=== PATIENT | female | born 1935 | race Caucasian/White ===

== ENCOUNTER 2018-12-11 19:50 | Inpatient (IN) | payer MEDICARE, MEDICAID ==
[~2018-12-11] VITALS: Ht 157.5 cm; Wt 46.7 kg
--- NOTE | 2018-12-11 20:15 | NUR ---
Pt. BIB RA for medical clearance to admit to GPU, pt. on 5150 for GD, pt. is alert to name but will not answer other questions, bed in low position, security at bedside for pt. safety,
[2018-12-11] MEDS ORDERED: DIVA125T2 PO (20:27)
[2018-12-11] MEDS ORDERED: CALO41.32 PO (20:27)
[2018-12-11] MEDS ORDERED: AMIN30LI2 PO (20:27)
[2018-12-11] MEDS ORDERED: CRAN450C PO (20:27)
[2018-12-11] MEDS ORDERED: NA P133E RC (20:27)
[2018-12-11] MEDS ORDERED: LACT-47 PO (20:27)
[2018-12-11] MEDS ORDERED: ACET-2154 PO (20:27)
[2018-12-11] MEDS ORDERED: HYDR-3326 PO (20:27)
[2018-12-11] MEDS ORDERED: OLANZAPINE 10 MG VIAL IM ONE ×2 (22:38→22:45)
[2018-12-11] MEDS ORDERED: diphenhydrAMINE 50 MG/1 ML VIAL ONE (22:38)
[2018-12-11] MEDS ORDERED: diphenhydrAMINE 50 MG/1 ML VIAL IM ONE (22:45)
[2018-12-11] MEDS ORDERED: ACETAMINOPHEN ES 500 MG TABLET PO ONE (23:00)
[2018-12-11] MEDS ORDERED: ACETAMINOPHEN ES 500 MG TABLET ONE (23:49)
[2018-12-12] LABS: BASOPHILS % (AUTO) 0.4 % (0.0-2.0); EOSINOPHILS # (AUTO) 0.1 K/uL (0.0-0.7); EOSINOPHILS % (AUTO) 0.9 % (0.0-7.0); HEMATOCRIT 37.2 % (31.2-41.9); HEMOGLOBIN 12.2 g/dL (10.9-14.3); LYMPHOCYTES # (AUTO) 1.3 K/uL (20.0-40.0); LYMPHOCYTES % (AUTO) 20.5 % (20.5-51.5); MEAN CORPUSCULAR HEMOGLOBIN 29.1 uug (24.7-32.8); MEAN CORPUSCULAR HGB CONC 33 g/dL (32.3-35.6); MEAN CORPUSCULAR VOLUME 88.5 fL (75.5-95.3); MONOCYTES # (AUTO) 0.5 K/uL (2.0-10.0); MONOCYTES % (AUTO) 7.5 % (0.0-11.0); NEUTROPHILS # (AUTO) 4.5 K/uL (1.8-8.9); NEUTROPHILS % (AUTO) 70.7 % (38.5-71.5); PLATELET COUNT (AUTO) 190 K/uL (179-408); WHITE BLOOD COUNT (AUTO) 6.4 K/uL (3.8-11.8)
[2018-12-12 00:03] LABS: CARBON DIOXIDE 22 mmol/L (21-32); CHLORIDE 109 mmol/L (98-107); CREATININE 0.9 mg/dL (0.6-1.3); GLUCOSE 131 mg/dL (74-106); POTASSIUM 4.1 mmol/L (3.5-5.1); UREA NITROGEN, BLOOD 30 mg/dL (7-18)
[2018-12-12 00:09] LABS: ACETAMINOPHEN < 2.0 ug/mL (10-30); ALANINE AMINOTRANSFERASE 8 U/L (14-59); ALKALINE PHOSPHATASE 56 U/L (50-136); ASPARTATE AMINOTRANSFERASE 6 U/L (15-37); BILIRUBIN,DIRECT 0.1 mg/dL (0.0-0.2); BILIRUBIN,TOTAL 0.3 mg/dL (0.2-1.0); TOTAL PROTEIN, SERUM 6.1 g/dL (6.4-8.2)
--- NOTE | 2018-12-12 00:17 | NUR ---
Urine specimen collected and sent to lab,
[2018-12-12 00:23] LABS: *BILIRUBIN,URIN NEGATIVE (NEGATIVE); *BLOOD, URINE 1+ (NEGATIVE); *CLARITY,URINE CLOUDY (CLEAR); *COLOR,URINE YELLOW (YELLOW); *KETONES,URINE NEGATIVE (NEGATIVE); *UROBILINOGEN,URINE 0.2 E.U./dl (NORMAL); LEUKOCYTE ESTERASE ,URINE 3+ (NEGATIVE); NITRITE, URINE POSITIVE (NEGATIVE); PH,URINE 6.5 (5.0-8.0); UGLUCOSE NEGATIVE (NEGATIVE)
[2018-12-12 00:38] LABS: BACTERIA,URINE MANY /HPF (NONE SEEN); SQUAMOUS EPITHELIAL CELL,UR FEW /HPF (NONE SEEN); WBC,URINE 50-80 /HPF (0-3)
[2018-12-12 00:42] LABS: *AMPHETAMINE, URINE NEGATIVE (NEGATIVE); *BARBITURATE, URINE NEGATIVE (NEGATIVE); *CANNABINOID, URINE NEGATIVE (NEGATIVE); *COCCAINE, URINE NEGATIVE (NEGATIVE); *OPIATE, URINE NEGATIVE (NEGATIVE); *PHENCYCLIDINE SCREEN,URINE NEGATIVE (NEGATIVE)
[2018-12-12 00:44] LABS: THYROID STIMULATING HORMONE 2.712 mIU/mL (0.358-3.740)
--- NOTE | 2018-12-12 00:58 | NUR ---
Pt. resting in bed w/ eyes closed, security at bedside for pt. safety, NAD
[2018-12-12] MEDS ORDERED: CEphaleXIN 500 MG CAPSULE PO ONE (01:30)
--- NOTE | 2018-12-12 01:38 | NUR ---
Called [facility] for panel call - awaiting call back from Dr. Morrison
[2018-12-12] MEDS ORDERED: CEphaleXIN 500 MG CAPSULE ONE (01:47)
--- NOTE | 2018-12-12 01:47 | NUR ---
Gave pt. sheeba chery per pt. request, bed in low position, security at bedside, NAD
--- NOTE | 2018-12-12 02:11 | NUR ---
Called [facility] for update on Panel call - awaiting call back from Dr. Morrison
--- NOTE | 2018-12-12 03:36 | NUR ---
Gave report to Genevieve in U
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
--- NOTE | 2018-12-12 04:53 | NUR ---
Pt. taken off unit via stretcher for admit to MHU, all belongings w/ pt., chart copied and kept w/ pt., NAD
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
[2018-12-12] MEDS ORDERED: ACETAMINOPHEN 325 MG TABLET PO PRN (05:15)
[2018-12-12] MEDS ORDERED: MAG HYDROX/AL HYDROX/SIMETH 30 ML LIQUID UDC PO PRN (05:15)
[2018-12-12] MEDS ORDERED: TEMAZEPAM 7.5 MG CAPSULE PO PRN (05:15)
[2018-12-12] MEDS ORDERED: LORAZEPAM 0.5 MG TABLET PO PRN (05:15)
[2018-12-12] MEDS ORDERED: MAGNESIUM HYDROXIDE 30 ML LIQUID UDC PO PRN (05:15)
[2018-12-12 05:25] VITALS: BP 151/78
[2018-12-12 07:30] VITALS: BP 114/58
[2018-12-12 16:00] VITALS: BP 127/67
--- NOTE | 2018-12-12 18:05 | NUR ---
GPS: RECEIVED PATIENT ON BED AOX1, PATIENT PARANOID, ISOLATIVE , PATIENT DENIES SI AND HI, PATIENT SPOKE WITH FAMILY ON TELEPHONE,PATIENT REFUSE MEDICATION, REFUSE TO WEAR HER PANTS, OFFERED PANT 3X AND EDUCATE PATIENT ON HER PRIVACY AND ADVANTAGE HOWEVER PATIENT STILL DOESNT WANT TO WEAR A PANTS, PATIENT ARGUE WITH ROOMMAMTES, VERBALLY ABUSIVE, WILL CONTINUE MONITOR
[2018-12-12] MEDS: DIVALPROEX 250 MG TABLET.DR PO SCH ×2 (20:39→20:47)
[2018-12-12] MEDS: QUETIAPINE FUMARATE 25 MG TABLET PO SCH (20:43)
[2018-12-12 21:07] VITALS: BP 132/65
[2018-12-12] MEDS ORDERED: FLEET ENEMA 133 ML BOTTLE RC PRN (21:45)
[2018-12-12] MEDS ORDERED: HYDROCODONE/APAP 5-325MG TABLET PO PRN (21:45)
[2018-12-12] MEDS: CEphaleXIN 500 MG CAPSULE PO SCH (22:00)
--- NOTE | 2018-12-12 22:00 | NUR ---
RECEIVED PATIENT IN BED AWAKE. SHE IS ISOLATIVE, PARANOID AND REFUSES HER MEDS SAYING"WHAT'S THE USE AM GOING TO ANYWAY". SHE HOWEVER DENIES HI/SI. SHE DID NOT C/O PAIN.SAFETY PRECAUTIONS IN PLACE. WILL CONTINUE TO MONITOR.
[2018-12-13] MEDS: CEphaleXIN 500 MG CAPSULE PO SCH ×3 (06:16→21:44)
--- NOTE | 2018-12-13 07:05 | NUR ---
SLEPT 7;45 HRS.
[2018-12-13] MEDS ORDERED: FLEET ENEMA 133 ML BOTTLE RC PRN (07:45)
[2018-12-13] MEDS: PROTEIN SUPPLEMENT (PROSTAT) 30 ML LIQUID PO SCH (08:00)
[2018-12-13] MEDS: COMPLEAT MODIFIED FORMULA 1000 ML LIQUID PO SCH ×3 (08:57→16:14)
[2018-12-13] MEDS: DIVALPROEX 250 MG TABLET.DR PO SCH ×2 (09:00→20:08)
[2018-12-13] MEDS ORDERED: Medication Not On Formulary EA (Amino Acids/Protein Hydrolys (Pro-Stat Liquid) 30 ML) PO SCH (09:00)
[2018-12-13 16:00] VITALS: BP 143/59
[2018-12-13] MEDS: QUETIAPINE FUMARATE 25 MG TABLET PO SCH (20:08)
[2018-12-14] MEDS: CEphaleXIN 500 MG CAPSULE PO SCH ×4 (06:00→21:55)
[2018-12-14 07:57] VITALS: BP 147/66
[2018-12-14] MEDS: PROTEIN SUPPLEMENT (PROSTAT) 30 ML LIQUID PO SCH (08:00)
[2018-12-14] MEDS: DIVALPROEX 250 MG TABLET.DR PO SCH ×2 (08:41→21:00)
--- NOTE | 2018-12-14 14:48 | NUR ---
Initial Discharge Planning: Patient is an 83 year old female who currently lives at [facility] [[address] [place] [address]; [phone]]. Patient will likely return to facility when she is ready for discharge. International Accounting Manager will continue to meet with patient, and collaborate with patient, family, and MD on a safe and proper discharge plan.
[2018-12-14 15:53] VITALS: BP 117/74
--- NOTE | 2018-12-14 18:14 | NUR ---
GPS: RECEIVED PATIENT AOX2, PATIENT REFUSED HER MEDICATION , REFUSED TO WEAR PANTS, REFUSED TO BE ASSISTED, EVEN AFTER OFFERING AND EDUCATING ABOUT THE NEEDS OF THE TREATMENT AND CARE, PATIENT REMAINS ISOLATIVE, EASILY IRRITABLE, POOR APPETITE , SEEN AND EXAMINED BY DR. CASTANEDA, DURING ROUNDS PATIENT AGREED TO TAKE THE MEDICATION , PATIENT AWARE ABOUT THE IMPORTANCE OF MEDICATION, OFFERED HER MEDICATION AGAIN , BUT THE PATIENT STILL REFUSED TO TAKE MEDICATION, WILL CONTINUE MONITOR
[2018-12-14 20:35] VITALS: BP 133/70
[2018-12-14] MEDS: QUETIAPINE FUMARATE 25 MG TABLET PO SCH (21:00)
[2018-12-15] MEDS: CEphaleXIN 500 MG CAPSULE PO SCH ×3 (06:00→21:20)
[2018-12-15] MEDS: PROTEIN SUPPLEMENT (PROSTAT) 30 ML LIQUID PO SCH (08:00)
[2018-12-15] MEDS: DIVALPROEX 250 MG TABLET.DR PO SCH ×2 (09:00→20:05)
[2018-12-15] MEDS: QUETIAPINE FUMARATE 25 MG TABLET PO SCH (20:06)
[2018-12-15 20:28] VITALS: BP 125/75
--- NOTE | 2018-12-15 21:00 | NUR ---
Patient refused to take any medications tonight. Patient stated that "Medications make me feel sick". Per day nurse, aware.
[2018-12-16] MEDS: CEphaleXIN 500 MG CAPSULE PO SCH ×3 (06:00→22:00)
[2018-12-16] MEDS: PROTEIN SUPPLEMENT (PROSTAT) 30 ML LIQUID PO SCH (08:00)
[2018-12-16] MEDS: DIVALPROEX 250 MG TABLET.DR PO SCH ×2 (09:00→21:00)
[2018-12-17] MEDS: CEphaleXIN 500 MG CAPSULE PO SCH ×3 (06:00→22:00)
[2018-12-17] MEDS: PROTEIN SUPPLEMENT (PROSTAT) 30 ML LIQUID PO SCH (08:00)
[2018-12-17] MEDS: DIVALPROEX 250 MG TABLET.DR PO SCH ×2 (09:00→21:00)
[2018-12-17] MEDS: OLANZAPINE 5 MG TABLET PO SCH (09:15)
[2018-12-17] MEDS: OLANZAPINE 10 MG VIAL IM PRN (10:22)
[2018-12-17 16:00] VITALS: BP 115/69
--- NOTE | 2018-12-17 17:15 | NUR ---
Gps/Extruder Tender- Yells at times, when checked what she's yelling for, claimed she does not know, but she needs help to laydown . Encouraged and instructed she can do it on her own. Skin dry, left forearm w/ steri-strips intact, site graciela. shins discolored, poor skin turgor.
--- NOTE | 2018-12-17 18:13 | NUR ---
Gps/Nurse School- Patient refused routine medications today. Labile mood , easily gets upset, confused, threw breakfast tray on the floor as well as threw front wheel walker, discouraged from doing so. Patient laughing at the staff who is picking up utensils from the floor.Continue to monitor behavior, safety reviewed and emphasized.
[2018-12-17] MEDS ORDERED: OLANZAPINE 5 MG TABLET PO SCH (21:00)
[2018-12-18] MEDS: CEphaleXIN 500 MG CAPSULE PO SCH ×3 (06:00→21:46)
--- NOTE | 2018-12-18 06:20 | NUR ---
pt.slept for 7.5 hrs.refused medications due. ambulating well. kept pt. safe & free from injury. not in any distress.
[2018-12-18] MEDS: PROTEIN SUPPLEMENT (PROSTAT) 30 ML LIQUID PO SCH (08:00)
[2018-12-18] MEDS: DIVALPROEX 250 MG TABLET.DR PO SCH ×2 (09:00→20:38)
[2018-12-18] MEDS: OLANZAPINE 5 MG TABLET PO SCH (09:00)
[2018-12-18] MEDS: OLANZAPINE 10 MG VIAL IM PRN (09:22)
--- NOTE | 2018-12-18 10:42 | NUR ---
Gps/Copy Technician- Bladder incontienence noted, patient had been refusing shower for the last few days. Explained to patient the need to have shower, patient her roomates complaining of the odorous smells. Taken to shower using shower chair, max assist, yelling , cursing staff . Had mod .formed stools while sitting up on her shower chair.Assisted with hygiene. Sacrococcygeal area reddened, kept skin dry clean, z-guard was ordered, cream applied . Encouraged pressure relief. resistive to her care all through out her am care. Safety continue to emphasized.
[2018-12-18] MEDS: Z GUARD REMEDY PASTE 57 GM TUBE TOP SCH ×2 (12:13→20:39)
[2018-12-18] MEDS ORDERED: OLANZAPINE 10 MG VIAL IM PRN (14:30)
[2018-12-19] MEDS: CEphaleXIN 500 MG CAPSULE PO SCH ×3 (06:00→22:00)
[2018-12-19 07:30] VITALS: BP 134/74
[2018-12-19] MEDS: PROTEIN SUPPLEMENT (PROSTAT) 30 ML LIQUID PO SCH (08:00)
[2018-12-19] MEDS: DIVALPROEX 250 MG TABLET.DR PO SCH ×2 (09:00→20:14)
[2018-12-19] MEDS: OLANZAPINE 5 MG TABLET PO SCH ×2 (09:00→17:00)
[2018-12-19] MEDS: Z GUARD REMEDY PASTE 57 GM TUBE TOP SCH ×2 (09:06→20:14)
--- NOTE | 2018-12-19 13:24 | NUR ---
Gps/Pecan Cleaner- Noted patient likes to drink ice water, as well as eating ice cream.Selective of her food, offered food of choice still refused.
[2018-12-19 15:43] VITALS: BP 140/78
[2018-12-19] MEDS: OLANZAPINE 10 MG VIAL IM PRN (18:15)
[2018-12-19 19:58] VITALS: BP 127/62
[2018-12-20] MEDS: CEphaleXIN 500 MG CAPSULE PO SCH ×3 (05:10→22:00)
[2018-12-20 07:30] VITALS: BP 142/80
[2018-12-20] MEDS: Z GUARD REMEDY PASTE 57 GM TUBE TOP SCH ×2 (08:31→20:14)
[2018-12-20] MEDS: OLANZAPINE 10 MG VIAL IM PRN ×2 (08:35→18:50)
[2018-12-20] MEDS: OLANZAPINE 5 MG TABLET PO SCH ×2 (08:35→17:00)
[2018-12-20] MEDS: PROTEIN SUPPLEMENT (PROSTAT) 30 ML LIQUID PO SCH (08:39)
[2018-12-20] MEDS: DIVALPROEX 250 MG TABLET.DR PO SCH ×2 (08:40→20:14)
[2018-12-20 16:00] VITALS: BP 121/72
[2018-12-20 20:31] VITALS: BP 126/82
[2018-12-21] MEDS: CEphaleXIN 500 MG CAPSULE PO SCH (05:31)
[2018-12-21 07:30] VITALS: BP 133/83
[2018-12-21] MEDS: PROTEIN SUPPLEMENT (PROSTAT) 30 ML LIQUID PO SCH (08:42)
[2018-12-21] MEDS: Z GUARD REMEDY PASTE 57 GM TUBE TOP SCH ×2 (08:43→21:19)
[2018-12-21] MEDS: DIVALPROEX 250 MG TABLET.DR PO SCH ×2 (08:44→21:00)
[2018-12-21] MEDS: OLANZAPINE 5 MG TABLET PO SCH ×2 (09:00→16:29)
[2018-12-21] MEDS: OLANZAPINE 10 MG VIAL IM PRN ×2 (09:31→16:30)
[2018-12-21] MEDS: CEFTRIAXONE 1 G VIAL IM SCH (12:02)
[2018-12-21 16:00] VITALS: BP 146/88
[2018-12-21] MEDS ORDERED: BENZTROPINE MESYLATE 0.5 MG TABLET PO PRN (18:45)
[2018-12-21] MEDS ORDERED: HALOPERIDOL 5 MG TABLET PO SCH (18:45)
[2018-12-21] MEDS ORDERED: HALOPERIDOL LACTATE 5 MG/1 ML VIAL IM PRN (18:45)
--- NOTE | 2018-12-21 20:00 | NUR ---
GPS/NSG VERIFIED WITH A.M. CHARGE NURSE KAYCEE BOOTH TO BEGIN 12/22/18 @7734
--- NOTE | 2018-12-21 20:23 | NUR ---
Patient received screaming " I have so much patient all over my body, 01/23." I offered patient a norco 5/325mg patient agreed and then patient refused. medication was returned.
--- NOTE | 2018-12-21 21:57 | NUR ---
Patient received in bed awake and remains uncooperative, labile, verbally abusive toward staff, irritable, demanding, and agitated. Patient remains resistant to care and requires frequent redirection. Patient refused vital signs and medication. Patient stated she has 8/10 pain generalized pain offered pain medication, patient refused to take it "it does not work." Patient's bed in lowest position, bed locked, and bed alarm on while in bed.
[2018-12-22 07:07] LABS: ALKALINE PHOSPHATASE 63 U/L (50-136); ASPARTATE AMINOTRANSFERASE 9 U/L (15-37); BILIRUBIN,TOTAL 0.5 mg/dL (0.2-1.0); CARBON DIOXIDE 21 mmol/L (21-32); CHLORIDE 110 mmol/L (98-107); CREATININE 0.6 mg/dL (0.6-1.3); GLUCOSE 124 mg/dL (74-106); MAGNESIUM 1.7 mg/dL (1.8-2.4); POTASSIUM 3.6 mmol/L (3.5-5.1); TOTAL PROTEIN, SERUM 6.7 g/dL (6.4-8.2); UREA NITROGEN, BLOOD 16 mg/dL (7-18)
[2018-12-22 07:15] LABS: ALANINE AMINOTRANSFERASE 7 U/L (14-59); BASOPHILS % (AUTO) 0.5 % (0.0-2.0); EOSINOPHILS # (AUTO) 0.1 K/uL (0.0-0.7); EOSINOPHILS % (AUTO) 1.7 % (0.0-7.0); HEMOGLOBIN 13.2 g/dL (10.9-14.3); LYMPHOCYTES # (AUTO) 1.6 K/uL (20.0-40.0); LYMPHOCYTES % (AUTO) 22.5 % (20.5-51.5); MEAN CORPUSCULAR HEMOGLOBIN 29.1 uug (24.7-32.8); MEAN CORPUSCULAR HGB CONC 34 g/dL (32.3-35.6); MONOCYTES # (AUTO) 0.6 K/uL (2.0-10.0); MONOCYTES % (AUTO) 8.1 % (0.0-11.0); NEUTROPHILS # (AUTO) 4.7 K/uL (1.8-8.9); NEUTROPHILS % (AUTO) 67.2 % (38.5-71.5); PLATELET COUNT (AUTO) 288 K/uL (179-408); RED BLOOD CELL COUNT(AUTO) 4.53 MIL/uL (3.63-4.92); WHITE BLOOD COUNT (AUTO) 6.9 K/uL (3.8-11.8)
[2018-12-22 07:30] VITALS: BP 124/69
[2018-12-22] MEDS: PROTEIN SUPPLEMENT (PROSTAT) 30 ML LIQUID PO SCH (08:00)
[2018-12-22] MEDS: DIVALPROEX 250 MG TABLET.DR PO SCH ×2 (08:13→21:00)
[2018-12-22] MEDS: Z GUARD REMEDY PASTE 57 GM TUBE TOP SCH ×2 (08:13→21:00)
[2018-12-22] MEDS: HALOPERIDOL 5 MG TABLET PO SCH (08:26)
[2018-12-22] MEDS: HALOPERIDOL LACTATE 5 MG/1 ML VIAL IM PRN (08:28)
[2018-12-22] MEDS: CEFTRIAXONE 1 G VIAL IM SCH (11:21)
[2018-12-22] MEDS ORDERED: MAGNESIUM OXIDE 400 MG TABLET PO ONE (11:45)
[2018-12-22 16:06] VITALS: BP 121/72
[2018-12-22 20:46] VITALS: BP 120/68
--- NOTE | 2018-12-22 21:30 | NUR ---
Patient refused to take medications this evening. Patient is tired and doesn't want to interact. Continuing to being noncompliant with meds and treatment. Poor appetite noted.
[2018-12-23 07:30] VITALS: BP 120/79
[2018-12-23] MEDS: PROTEIN SUPPLEMENT (PROSTAT) 30 ML LIQUID PO SCH (08:00)
[2018-12-23] MEDS: DIVALPROEX 250 MG TABLET.DR PO SCH ×2 (08:51→21:00)
[2018-12-23] MEDS: HALOPERIDOL 5 MG TABLET PO SCH (08:52)
[2018-12-23] MEDS: HALOPERIDOL LACTATE 5 MG/1 ML VIAL IM PRN (09:00)
[2018-12-23] MEDS: Z GUARD REMEDY PASTE 57 GM TUBE TOP SCH ×2 (09:45→21:51)
[2018-12-23] MEDS: CEFTRIAXONE 1 G VIAL IM SCH (12:03)
[2018-12-23 16:00] VITALS: BP 128/68
[2018-12-23] MEDS ORDERED: HALOPERIDOL DECANOATE 50 MG/1 ML AMPUL IM ONE (18:30)
--- NOTE | 2018-12-23 18:43 | NUR ---
PATIENT REFUSED PO MEDS, IM ADMINISTERED ORDERED, NO ACUTE DISTRESS NOTED.
--- NOTE | 2018-12-23 19:24 | NUR ---
ENDORSED TO NEXT SHIFT TO ADMINISTER THE IM HALDOL DECONATE LONG ACTING , CALLED PHARMACY TO DELIVER IT
[2018-12-23 20:26] VITALS: BP 129/64
--- NOTE | 2018-12-23 22:00 | NUR ---
HALDOL DECANOATE 25MG IM (LONG ACTING) WAS GIVEN WITH PATIENT CONSENT. SHE TOLERATED WELL. WILL CONTINUE TO MONITOR.
[2018-12-24 07:30] VITALS: BP 137/72
[2018-12-24] MEDS: PROTEIN SUPPLEMENT (PROSTAT) 30 ML LIQUID PO SCH (08:00)
[2018-12-24] MEDS: DIVALPROEX 250 MG TABLET.DR PO SCH ×2 (09:00→20:09)
[2018-12-24] MEDS: HALOPERIDOL 5 MG TABLET PO SCH (09:00)
[2018-12-24] MEDS: HALOPERIDOL LACTATE 5 MG/1 ML VIAL IM PRN (09:45)
[2018-12-24] MEDS: Z GUARD REMEDY PASTE 57 GM TUBE TOP SCH ×2 (09:59→21:18)
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
[2018-12-24] MEDS: CEFTRIAXONE 1 G VIAL IM SCH (12:41)
[2018-12-24 16:00] VITALS: BP 109/69
--- NOTE | 2018-12-24 17:58 | NUR ---
Pt received resting in bed this morning, easily awoken. Pt refuses all PO medications, Pt teaching provided, IM medications administered per MD orders. Pt denies SI/HI and is able to CFS. Pt requested 2 Tylenol for c/o headache, 8/ pain resolved. Pt clean and dry. All comfort and safety needs attended to. Will continue to monitor and endorse to rn shift mgr.
[2018-12-24 19:55] VITALS: BP 123/73
--- NOTE | 2018-12-24 20:30 | NUR ---
RECEIVED PT IN HER ROOM IN BED. SHE IS NOTED AWAKE A/O X 2, CALM AND PLEASANT UPON APPROACHED. PATIENT WAS ABLE OT COMPLY WITH [facility] MEDICATION REGIMENT (DEPAKOTE). SHE IS NOTED LESS IRRITABLE. V/S STABLE AT THIS TIME. SAFETY AND FALL PRECAUTION IN PLACE. WILL CONTINUE TO MONITOR.
[2018-12-25] MEDS: PROTEIN SUPPLEMENT (PROSTAT) 30 ML LIQUID PO SCH (08:00)
[2018-12-25 08:02] VITALS: BP 116/69
--- NOTE | 2018-12-25 08:36 | NUR ---
Discharge Note: Patient will be [facility] [facility] [place] [address]; ]. Decator Operator spoke with Jessica, Medical Health Researcher, who stated patient will be accepted back at facility. Please arrange ambulance for this patient by 12:00pm. Patient is aware and agreeable with discharge plan. Decator Operator called and spoke with patients daughter Cony Hampton, who is aware and agreeable with discharge plans. Patient will follow up with Dr. Jeter (Web Marketing Intern) and Dr. Fairchild (Psychiatrist) at [facility]. Patient was given outpatient mental health resources to [facility] , Charlee Payne , and the National Suicide Prevention Lifeline .
[2018-12-25] MEDS: DIVALPROEX 250 MG TABLET.DR PO SCH (09:00)
[2018-12-25] MEDS: HALOPERIDOL 5 MG TABLET PO SCH (09:00)
[2018-12-25] MEDS: Z GUARD REMEDY PASTE 57 GM TUBE TOP SCH (09:22)
[2018-12-25] MEDS: HALOPERIDOL LACTATE 5 MG/1 ML VIAL IM PRN (09:42)
[2018-12-25] MEDS: CEFTRIAXONE 1 G VIAL IM SCH (11:44)
--- NOTE | 2018-12-25 13:47 | NUR ---
PT LEFT UNIT ON [facility], ACCOMPANIED BY 2 TOURIST ESCORT. LEFT WITH ALL NOTED BELONGINGS AND PAPERWORK. V/S STABLE. DENIES PAIN OR DISCOMFORT. IN NO ACUTE DISTRESS.
--- NOTE | 2018-12-25 16:16 | NUR ---
GROUP NOTE: SW prompted pt to attend group discussing the topic of social supports, but pt unable to participate in group.
[2019-01-14] MEDS ORDERED: HALOPERIDOL DECANOATE 50 MG/1 ML AMPUL IM ONE (10:15)
== END 2018-12-25 15:00 | DRG 885 ==
LOC: ER 19:53 → GPS 12-12 04:20
PROVIDERS: ADMIT Psychiatry & Neurology Psychiatry; ATTEND Internal Medicine
DX: F39 Unspecified mood [affective] disorder (principal); E43 Unspecified severe protein-calorie malnutrition; G92 Toxic encephalopathy; N39.0 Urinary tract infection, site not specified; Z68.1 Body mass index [BMI] 19.9 or less, adult; I44.0 Atrioventricular block, first degree; Z79.899 Other long term (current) drug therapy; B96.20 Unspecified Escherichia coli [E. coli] as the cause of diseases classified elsewhere; Z16.29 Resistance to other single specified antibiotic; Z91.14 Patient's other noncompliance with medication regimen; E11.9 Type 2 diabetes mellitus without complications; M81.0 Age-related osteoporosis without current pathological fracture; M19.90 Unspecified osteoarthritis, unspecified site; R62.7 Adult failure to thrive
CPT/HCPCS: 36415; 70030-TC; 71045; 80307; 83735; 84100; 84443; 85025; 85730; 87077; 87086; 93005; A4663; A9150; G0480; G0480-TC; J0696; J1200; J1630; J1631; J2358; J3490